=== PATIENT | female | born 2000 | race Two or more races ===

== ENCOUNTER 2020-11-17 22:48 | Emergency (ER) | payer OTHER ==
[2020-11-17 23:52] LABS: HEMOGLOBIN 11.4 gm/dl (12.3-15.3); RED BLOOD COUNT 3.38 M/UL (4.00-5.10); WHITE BLOOD COUNT 9.1 K/UL (4.5-11.0)
[2020-11-18 00:12] LABS: BUN/CREATININE RATIO 13 (0-10)
== END 2020-11-18 09:10 | disposition home or self-care (01) ==
LOC: ER1 22:48
PROVIDERS: Emergency Medicine
DX: G40.909 Epilepsy, unspecified, not intractable, without status epilepticus (principal); E87.6 Hypokalemia; F17.200 Nicotine dependence, unspecified, uncomplicated
CPT/HCPCS: 70450; 71045; 80053; 80183; 80307; 81001; 82550; 82553; 82962; 83605; 83690; 83735; 83874; 83880; 84439; 84443; 84484; 84703; 85025; 85610; 85730; 93005; 99284; G0480; J0461; J2405

== ENCOUNTER 2020-12-19 21:56 | Emergency (ER) | payer OTHER ==
[2020-12-19 22:48] LABS: HEMOGLOBIN 11.2 gm/dl (12.3-15.3); RED BLOOD COUNT 3.29 M/UL (4.00-5.10); WHITE BLOOD COUNT 10.3 K/UL (4.5-11.0)
[2020-12-19 23:03] LABS: BUN/CREATININE RATIO 17 (0-10)
[2020-12-20] MEDS ORDERED: VALPROIC ACID250 MG PO (15:51)
== END 2020-12-19 23:46 | disposition home or self-care (01) ==
LOC: ER1 21:56
PROVIDERS: Student in an Organized Health Care Education/Training Program
DX: G40.909 Epilepsy, unspecified, not intractable, without status epilepticus (principal); F17.210 Nicotine dependence, cigarettes, uncomplicated
CPT/HCPCS: 80053; 81001; 83735; 84100; 84703; 85025; 93005; 99285

== ENCOUNTER 2020-12-20 13:29 | Emergency (ER) | payer OTHER ==
[2020-12-20] MEDS ORDERED: VALPROIC ACID250 MG PO (15:51)
== END 2020-12-20 17:38 | disposition home or self-care (01) ==
LOC: ER1 13:29
DX: G40.909 Epilepsy, unspecified, not intractable, without status epilepticus (principal); E66.01 Morbid (severe) obesity due to excess calories
CPT/HCPCS: 93005; G0480; J2060; J7030

== ENCOUNTER 2020-12-20 22:22 | Emergency (ER) | payer OTHER ==
[~2020-12-20 22:22] MED LIST: VALPROIC ACID250 MG PO
[2020-12-21 00:39] LABS: HEMOGLOBIN 11.9 gm/dl (12.3-15.3); RED BLOOD COUNT 3.46 M/UL (4.00-5.10); WHITE BLOOD COUNT 7.8 K/UL (4.5-11.0)
[2020-12-21 02:23] LABS: BUN/CREATININE RATIO 16 (0-10)
== END 2020-12-21 07:05 | disposition left against medical advice (07) ==
LOC: ER1 22:22
PROVIDERS: Student in an Organized Health Care Education/Training Program
DX: G40.909 Epilepsy, unspecified, not intractable, without status epilepticus (principal); F17.210 Nicotine dependence, cigarettes, uncomplicated
CPT/HCPCS: 80053; 81001; 82550; 82553; 83735; 83874; 84100; 84439; 84443; 84484; 84702; 85025; 93005; 96374; 96375; 99284; G0480; J2060; J7030

== ENCOUNTER 2020-12-21 08:55 | Emergency (ER) | payer OTHER | END 2020-12-21 09:32 | disposition home or self-care (01) | LOC: ER1 08:55 | DX: R56.9 Unspecified convulsions (principal) | CPT/HCPCS: 99283 ==

== ENCOUNTER 2020-12-22 22:18 | Emergency (ER) | payer OTHER ==
[2020-12-23 02:12] LABS: HEMOGLOBIN 11.8 gm/dl (12.3-15.3); RED BLOOD COUNT 3.61 M/UL (4.00-5.10); WHITE BLOOD COUNT 9.2 K/UL (4.5-11.0)
[2020-12-23 02:39] LABS: BUN/CREATININE RATIO 19 (0-10)
== END 2020-12-23 03:45 | disposition home or self-care (01) ==
LOC: ER1 22:18
PROVIDERS: Physician Assistant Medical
DX: S01.81XA Laceration without foreign body of other part of head, initial encounter (principal); S71.111A Laceration without foreign body, right thigh, initial encounter; G40.909 Epilepsy, unspecified, not intractable, without status epilepticus; Z20.822 Contact with and (suspected) exposure to COVID-19; W22.8XXA Striking against or struck by other objects, initial encounter
CPT/HCPCS: 71045; 80053; 85025; 93005; 99285; G0480; U0002